=== PATIENT | male | born 1970 | race Two or more races ===

== ENCOUNTER 2024-08-08 17:44 | Emergency (ER) | payer OTHER ==
[~2024-08-08] VITALS: Ht 157.5 cm; Wt 88.2 kg
[2024-08-08 19:22] VITALS: TEMP 98.6
[2024-08-08 19:50] VITALS: BP 157/93; PULSE 70; RESP 16; O2SAT 98
[2024-08-08] MEDS: PB/HYOSCY/ATR/SCOP/LIDO/MAALOX 55 ML BOTTLE PO ONE (19:52)
== END 2024-08-08 20:27 ==
LOC: EMS 17:47
DX: K21.9 Gastro-esophageal reflux disease without esophagitis (principal); I10 Essential (primary) hypertension
CPT/HCPCS: 99283